=== PATIENT | male | born 1965 | race Caucasian/White ===

== ENCOUNTER 2017-04-03 10:58 | Emergency (ER) | payer OTHER ==
[~2017-04-03] VITALS: Ht 175.3 cm; Wt 67.6 kg
[2017-04-03 12:40] LABS: HEMATOCRIT 48.6 % (38.0-50.0); HEMOGLOBIN 17.2 G/DL (12.5-16.6); MCHC 35.4 G/DL (30.0-36.0); MCV 87.6 FL (86-99); PLATELET COUNT 201 K/uL (156-360); RBC DIS.WIDTH-CV 12.5 % (11.8-14.6); RBC DIS.WIDTH-SD 40.6 % (39-53); RED BLOOD COUNT 5.55 M/uL (4.00-5.50); WHITE BLOOD COUNT 16.6 K/uL (4.1-10.2)
[2017-04-03] MEDS ORDERED: DOXYCYCLINE MO100 MG PO (14:33)
[2017-04-03] MEDS ORDERED: PERCOCET 5/31 TABLET PO (14:55)
[2017-04-03 15:38] VITALS: BP 128/75
== END 2017-04-03 15:42 | disposition home or self-care (01) ==
LOC: EME 10:58
PROVIDERS: Physician Assistant
DX: M70.21 Olecranon bursitis, right elbow (principal); L03.113 Cellulitis of right upper limb; F17.200 Nicotine dependence, unspecified, uncomplicated
CPT/HCPCS: 73201; 85027; 86140; 99281; 99284; J7040